=== PATIENT | male | born 1940 | race Caucasian/White ===

== ENCOUNTER → 2019-05-18 | Outpatient (CLI) | payer MEDICARE, OTHER ==
[2016-02-12 10:28] VITALS: BP 125/65
[~2019-05-18] MED LIST: ACET160S PO; ACET325T21 PO; ACET650S PO; ASPI-482 PO; CALC-326 PO; CARB1DRO OP; CARV6.2511 PO; CHOL200074 PO; CYCL5TAB PO; DOXY100C2 PO; FURO40TA4 PO; HYDR-2761 PO; LISI-334 PO; LISI2.5T PO; LORA0.5T PO; LOSA-73 PO; MAGN400T22 PO; MAGN64TA6 PO; MELA5LIQ PO; MELA5TAB PO; METO-313 PO; MULT1TAB52 PO; OFLO5DRO4 OD; ONDA4TAB10 SL; PANT40TA77 PO; PNV1TABL25 PO; PNV1TABL34 PO; POTA10TA12 PO; SIMV40TA3 PO
--- NOTE | 2019-05-18 17:09 | KCIC ---
EXAM: Chest, 2 views. HISTORY: Dyspnea on exertion. COMPARISON: None. FINDINGS: 2 views of the chest are obtained. There is no infiltrate, pleural effusion or pneumothorax. The heart is upper normal in size. There are healed rib fractures. There is a nodular opacity overlying the right lower thorax due to nipple shadow. There is hyperinflation due to inspiratory effort or emphysema. IMPRESSION: No acute pulmonary finding. Electronically signed by: Rosa Egan MD (05/18/2019 5:06 PM) [place] [id number]
== END | disposition home or self-care (01) ==
LOC: KCIC 11:31
PROVIDERS: ATTEND Family Medicine
DX: I42.9 Cardiomyopathy, unspecified (principal); R06.09 Other forms of dyspnea
CPT/HCPCS: 71046